=== PATIENT | male | born 1975 | race Caucasian/White ===

== ENCOUNTER → 2019-03-13 | Outpatient (CLI) | payer MEDICAID | END | disposition home or self-care (01) | LOC: PREOP 15:09 | PROVIDERS: ATTEND Orthopaedic Surgery Orthopaedic Surgery of the Spine | DX: Z01.818 Encounter for other preprocedural examination (principal) ==

== ENCOUNTER 2019-03-19 09:15 | Inpatient (IN) | payer MEDICAID ==
[~2019-03-19] VITALS: Ht 185 cm; Wt 102.1 kg
[2019-04-05] MEDS ORDERED: GABA-488 PO (10:14)
[2019-04-05] MEDS ORDERED: METO-333 PO (10:14)
[2019-04-16] MEDS ORDERED: LACTATED RINGERS 1,000 ML IV PRN (06:11)
[2019-04-16] MEDS ORDERED: ceFAZolin 2 GM IV Premixed 50 ML IV ONE (06:15)
[2019-04-16 06:25] VITALS: BP 153/92
[2019-04-16] MEDS ORDERED: GENTAMICIN 40 MG/ML 2 ML INJ SDV ONE (06:53)
[2019-04-16] MEDS ORDERED: SUCCINYLCHOLINE INJ 100 MG/5 ML SYR ONE (06:57)
[2019-04-16] MEDS ORDERED: LIDOCAINE PF 2% 5 ML (XYLOCAINE) VIAL ONE (06:57)
[2019-04-16] MEDS ORDERED: proPOfol 200 MG/20 ML (DIPRIVAN) VIAL IV ONE (06:57)
[2019-04-16] MEDS ORDERED: ONDANSETRON 4 MG/2 ML (SDV) Z0FRAN ONE (06:57)
[2019-04-16] MEDS ORDERED: ROCURONIUM 10 MG/ML 5 ML SYRINGE IV ONE (06:57)
[2019-04-16] MEDS ORDERED: MIDAZOLAM 2 MG/2 ML (VERSED) VIAL ONE (06:58)
[2019-04-16] MEDS ORDERED: DEXAMETHASONE 10 MG/ML (DECADRON) 1 ML VIAL ONE (06:58)
[2019-04-16] MEDS ORDERED: fentaNYL INJECTION 100 MCG/2 ML AMP ONE (06:58)
[2019-04-16] MEDS ORDERED: NS (IVPB) 0 ML ONE (06:59)
[2019-04-16] MEDS ORDERED: MULTIVIT W/MINERALS TAB (THERAGRAN M) PO SCH (07:00)
[2019-04-16] MEDS ORDERED: ONDANSETRON 4 MG (ZOFRAN) ORAL DISSOLVE TAB PO PRN (07:00)
[2019-04-16] MEDS ORDERED: morphine INJ 10 MG/ML 1ML (SYR OR VIAL) IVP PRN (07:00)
[2019-04-16] MEDS ORDERED: BISACODYL 5 MG (DULCOLAX) TABLET PO PRN (07:00)
[2019-04-16] MEDS ORDERED: VANCOMYCIN INJECTION 1,000 MG in NS (IVPB) 250 ML IV ONE (07:00)
[2019-04-16] MEDS ORDERED: HYDROcodone/APAP 5 MG/325 MG (LORTAB) TAB PO PRN (07:00)
[2019-04-16] MEDS ORDERED: PANTOPRAZOLE 40 MG (PROTONIX) TAB PO SCH (07:00)
[2019-04-16] MEDS ORDERED: ONDANSETRON 4 MG/2 ML (SDV) Z0FRAN IV PRN (07:00)
[2019-04-16] MEDS ORDERED: ACETAMINOPHEN 325 MG TABLET PO PRN (07:00)
[2019-04-16] MEDS ORDERED: MILK OF MAGNESIA 400 MG/5 ML 30 ML UDC PO PRN (07:00)
--- NOTE | 2019-04-16 07:15 | NUR ---
DR. FELIZ HERE. CANCELED SURGERY DUE TO NO INSTRUMENTATION. IV DC'D. BANDAID TO SITE. PATIENT GETTING DRESSED AND CALLING FOR RIDE.
--- NOTE | 2019-04-16 07:29 | Progress Note ---
Subjective Date Seen by a Provider: Apr 16, 2019 Time Seen by a Provider: 07:27 Subjective/Events-last exam Ready for surgery Objective Exam Vital Signs Date Time Temp Pulse Resp B/P (MAP) Pulse Ox O2 Delivery O2 Flow Rate FiO2 04/16/19 06:25 36.1 108 18 153/92 98 Room Air 04/16/19 06:25 98 Room Air Capillary Refill : Less Than 3 Seconds General Appearance: No Apparent Distress Assessment/Plan Assessment/Plan Assess & Plan/Chief Complaint Mr Le surgery is going to be cancelled this morning due to fact communication with office has been poor and office staff unaware he made his pre-op visit and was cancelled at the office and instrumentation companies unaware of case. He will need to be rescheduled. CHRISTIAN FELIZ MD Apr 16, 2019 07:29 POS
--- NOTE | 2019-04-16 08:30 | NUR ---
PATIENT AMBULATED OFF THE FLOOR TO GO TO THE [place], AWAITING A RIDE FROM HIS INSURANCE COMPANY.
[2019-04-16] MEDS ORDERED: VANCOMYCIN INJECTION 1,000 MG in NS (IVPB) 250 ML IV SCH (09:00)
[2019-04-16] MEDS ORDERED: POLYETHYLENE GLYCOL 17 GM (MIRALAX) PACK PO SCH (21:00)
--- OUTSIDE RECORDS SUMMARY | 2019-05-08 19:42 | XMS REPORT | Clinical Summary ---
Author Author Admin, QIE POS Organization [facility] SP Address Unknown SP Phone Unavailable SP Allergies, Adverse Reactions, Alerts Allergy Name Reaction Description Start Date Severity Status Pr ovider POS No Known Allergies Tika Grimes MA SP Conditions or Problems Problem Name Problem Code Onset Date Status Entry Date Provider Comment Standard POSDescription Annotate POS BMI 30-30.9 Refinement Kush Macias DO Body Mass Index 30.0- SP adult SP BMI 29-29.9 Active Kush Macias DO [place] dy Mass Index 30.0-30.9, SP SP Obesity Class I (BMI 30-34.9) Refinement Phuong Macias DO SP unspecified SP Overweight (BMI 25-29.9) Active Kush Macias DO Obesity, SP SP Cervical radiculopathy 723.4 Active Kush Macias DO SP neuritis or radiculitis NOS SP Cervical radiculopathy, right 723.4 Active 6 Kush Macias DO SP Brachial neuritis or radiculitis NOS SP Tobacco smoker 305.1 Active Kush Macias DO Tobacco use SP SP Elevated blood pressure without diagnosis of hypertension 796.2 SP Kush Macias DO Elevated blood p ressure reading without diagnosis SPof hypertension SP Cervical spine stenosis 723.0 Active Kush Ramon DO SP stenosis of cervical region SP Hypertension 401.9 Active Kush Macias DO Unspecified SP hypertension SP Medication List Medication Instructions Start Date Stop Date Generic Name NDC Status Provider POS Instruction METOPROLOL TARTRATE 25 MG ORAL TABLET 1/2 tablet by [facility] twice daily for POS and pulse METOPROLOL TARTRATE 29627214720 Active B edil Landaverde Gilberto DO SP Active SP GABAPENTIN 600 MG ORAL TABLET 1 p.o. 3 times daily for chron ic nerve pain SP GABAPENTIN 67398997734 Active Kush Macias DO Ac tive SP CYCLOBENZAPRINE HCL 10 MG ORAL TABLET 1 tablet by mouth q hs for pain and rest SP CYCLOBENZAPRINE HCL 28890566089 No Longer Active Kush Saima Dena e DO SP GABAPENTIN 300 MG ORAL CAPSULE 1 po TID for nerve pain GABAPENTIN SP Active Kush Macias DO Active SP CYCLOBENZAPRINE HCL 10 MG ORAL TABLET 1 tablet by mouth q hs for pain and rest SP CYCLOBENZAPRINE HCL 10 MG ORAL TABLET 601492 CYC LOBENZAPRINE HCL SP Vital Signs Date Name Value Unit Range Description POS blood pressure, diastolic, repeated by physician 83 BP farley SP blood pressure, diastolic 83 mm[Hg] BP farley SP blood pressure, systolic, repeated by physician 139 BP sys blood pressure, systolic 139 mm[Hg] BP sys SP height E&M 73 [in_us] Bdy height SP pulse rate E&M 97 /min Heart rate SP temperature E&M 98.2 [degF] Body temp erature SP weight E&M 224.31 [lb_av] Weight Measure d SP blood pressure, diastolic, repeated by physician 88 BP farley SP blood pressure, diastolic 88 mm[Hg] BP farley SP blood pressure, systolic, repeated by physician 135 BP sys SP blood pressure, systolic 135 mm[Hg] BP sys SP height E&M 73 [in_us] Bdy height SP pulse rate E&M 106 /min Heart rate SP temperature E&M 98.0 [degF] Body temp erature SP weight E&M 230.31 [lb_av] Weight Measure d SP Diagnostic Results Date Name Value Unit Range Description POS Office Visit: Establish Care - Chemistry SP HDL cholesterol, serum, target level 40 mg/dL SP cholesterol, target level 200 mg/dL SP triglyceride, target level 150 mg/dL SP Encounters Code Encounter Date Provider Facility POS CPT-72234 56880-Iqw Vst-Est Level IV 14:55:24 CDT Prem Landaverde [facility] CPT-63610 80526-Mzq Vst-New Level IV 13:58:49 CDT Prem Landaverde [facility] Procedures Code Procedure Name Date Entry Date Standard Desc ription POS CPT-40685 Smoking Cessation counseling 14:55:26 CDT 2
--- OUTSIDE RECORDS SUMMARY | 2019-05-08 19:42 | XMS REPORT | Clinical Summary ---
Author Author Admin, QIE POS Organization [facility] SP Address Unknown SP Phone Unavailable [...] 25 MG ORAL TABLET 1/2 tablet by [facility] twice daily for POS and pulse METOPROLOL TARTRATE 27149214786 Active B edil Landaverde Gilberto DO SP Active SP GABAPENTIN 600 MG ORAL TABLET 1 p.o. 3 times daily for chron ic nerve pain SP GABAPENTIN 34310581064 Active Kush Macias DO Ac tive SP CYCLOBENZAPRINE HCL 10 MG ORAL TABLET 1 tablet by mouth q hs for pain and rest SP CYCLOBENZAPRINE HCL 99227230079 No Longer Active Kush Saima Dena e DO SP GABAPENTIN 300 MG ORAL CAPSULE 1 po TID for nerve pain GABAPENTIN SP Active Kush Macias DO Active SP CYCLOBENZAPRINE HCL 10 MG ORAL TABLET 1 tablet by mouth q hs for pain and rest SP CYCLOBENZAPRINE HCL 10 MG ORAL TABLET 533832 CYC LOBENZAPRINE HCL SP Vital Signs Date [...] Encounters Code Encounter Date Provider Facility POS CPT-13408 66345-Bsl Vst-Est Level IV 14:55:24 CDT Prem Landaverde [facility] CPT-88890 73044-Rct Vst-New Level IV 13:58:49 CDT Prem Landaverde [facility] Procedures Code Procedure Name Date Entry Date Standard Desc ription POS CPT-57025 Smoking Cessation counseling 14:55:26 CDT 2
--- OUTSIDE RECORDS SUMMARY | 2019-05-08 19:42 | XMS REPORT | Clinical Summary ---
Author Author Admin, QIE POS Organization [facility] SP Address Unknown SP Phone Unavailable [...] 25 MG ORAL TABLET 1/2 tablet by [facility] twice daily for POS and pulse METOPROLOL TARTRATE 45004922149 Active B edil Landaverde Gilberto DO SP Active SP GABAPENTIN 600 MG ORAL TABLET 1 p.o. 3 times daily for chron ic nerve pain SP GABAPENTIN 00818441665 Active Kush Macias DO Ac tive SP CYCLOBENZAPRINE HCL 10 MG ORAL TABLET 1 tablet by mouth q hs for pain and rest SP CYCLOBENZAPRINE HCL 18889663740 No Longer Active Kush Saima Dena e DO SP GABAPENTIN 300 MG ORAL CAPSULE 1 po TID for nerve pain GABAPENTIN SP Active Kush Macias DO Active SP CYCLOBENZAPRINE HCL 10 MG ORAL TABLET 1 tablet by mouth q hs for pain and rest SP CYCLOBENZAPRINE HCL 10 MG ORAL TABLET 292205 CYC LOBENZAPRINE HCL SP Vital Signs Date [...] Encounters Code Encounter Date Provider Facility POS CPT-79566 07946-Eix Vst-Est Level IV 14:55:24 CDT Prem Landaverde [facility] CPT-06137 31897-Kvv Vst-New Level IV 13:58:49 CDT Prem Landaverde [facility] Procedures Code Procedure Name Date Entry Date Standard Desc ription POS CPT-96976 Smoking Cessation counseling 14:55:26 CDT 2
--- OUTSIDE RECORDS SUMMARY | 2019-05-08 19:42 | XMS REPORT | Clinical Summary ---
Author Author Admin, QIE POS Organization [facility] SP Address Unknown SP Phone Unavailable SP [...] 25 MG ORAL TABLET 1/2 tablet by [facility] twice daily for POS and pulse METOPROLOL TARTRATE 46711163727 Active B edil Landaverde Gilberto DO SP Active SP GABAPENTIN 600 MG ORAL TABLET 1 p.o. 3 times daily for chron ic nerve pain SP GABAPENTIN 49629870266 Active Kush Macias DO Ac tive SP CYCLOBENZAPRINE HCL 10 MG ORAL TABLET 1 tablet by mouth q hs for pain and rest SP CYCLOBENZAPRINE HCL 29429302401 No Longer Active Kush Saima Dena e DO SP GABAPENTIN 300 MG ORAL CAPSULE 1 po TID for nerve pain GABAPENTIN SP Active Kush Macias DO Active SP CYCLOBENZAPRINE HCL 10 MG ORAL TABLET 1 tablet by mouth q hs for pain and rest SP CYCLOBENZAPRINE HCL 10 MG ORAL TABLET 273345 CYC LOBENZAPRINE HCL SP Vital Signs Date [...] Encounters Code Encounter Date Provider Facility POS CPT-28780 29765-Sfq Vst-Est Level IV 14:55:24 CDT Prem Landaverde [facility] CPT-97462 53080-Kbi Vst-New Level IV 13:58:49 CDT Prem Landaverde [facility] Procedures Code Procedure Name Date Entry Date Standard Desc ription POS CPT-76086 Smoking Cessation counseling 14:55:26 CDT 2
--- OUTSIDE RECORDS SUMMARY | 2019-05-08 19:42 | XMS REPORT | Clinical Summary ---
Author Author Admin, QIE POS Organization [facility] SP Address Unknown SP Phone Unavailable SP [...] 25 MG ORAL TABLET 1/2 tablet by [facility] twice daily for POS and pulse METOPROLOL TARTRATE 96625062151 Active B edil Landaverde Gilberto DO SP Active SP GABAPENTIN 600 MG ORAL TABLET 1 p.o. 3 times daily for chron ic nerve pain SP GABAPENTIN 80858037474 Active Kush Macias DO Ac tive SP CYCLOBENZAPRINE HCL 10 MG ORAL TABLET 1 tablet by mouth q hs for pain and rest SP CYCLOBENZAPRINE HCL 65916189954 No Longer Active Kush Saima Dena e DO SP GABAPENTIN 300 MG ORAL CAPSULE 1 po TID for nerve pain GABAPENTIN SP Active Kush Macias DO Active SP CYCLOBENZAPRINE HCL 10 MG ORAL TABLET 1 tablet by mouth q hs for pain and rest SP CYCLOBENZAPRINE HCL 10 MG ORAL TABLET 392170 CYC LOBENZAPRINE HCL SP Vital Signs Date [...] Encounters Code Encounter Date Provider Facility POS CPT-69828 82347-Nnv Vst-Est Level IV 14:55:24 CDT Prem Landaverde [facility] CPT-36324 60209-Wbg Vst-New Level IV 13:58:49 CDT Prem Landaverde [facility] Procedures Code Procedure Name Date Entry Date Standard Desc ription POS CPT-46312 Smoking Cessation counseling 14:55:26 CDT 2
--- OUTSIDE RECORDS SUMMARY | 2019-05-08 19:42 | XMS REPORT | Clinical Summary ---
Author Author Admin, QIE POS Organization [facility] SP Address Unknown SP Phone Unavailable [...] 25 MG ORAL TABLET 1/2 tablet by [facility] twice daily for POS and pulse METOPROLOL TARTRATE 34003903308 Active B edil Landaverde Gilberto DO SP Active SP GABAPENTIN 600 MG ORAL TABLET 1 p.o. 3 times daily for chron ic nerve pain SP GABAPENTIN 27860375299 Active Kush Macias DO Ac tive SP CYCLOBENZAPRINE HCL 10 MG ORAL TABLET 1 tablet by mouth q hs for pain and rest SP CYCLOBENZAPRINE HCL 20455934915 No Longer Active Kush Saima Dena e DO SP GABAPENTIN 300 MG ORAL CAPSULE 1 po TID for nerve pain GABAPENTIN SP Active Kush Macias DO Active SP CYCLOBENZAPRINE HCL 10 MG ORAL TABLET 1 tablet by mouth q hs for pain and rest SP CYCLOBENZAPRINE HCL 10 MG ORAL TABLET 423102 CYC LOBENZAPRINE HCL SP Vital Signs Date [...] Encounters Code Encounter Date Provider Facility POS CPT-01324 88943-Puz Vst-Est Level IV 14:55:24 CDT Prem Landaverde [facility] CPT-52034 98670-Apa Vst-New Level IV 13:58:49 CDT Prem Landaverde [facility] Procedures Code Procedure Name Date Entry Date Standard Desc ription POS CPT-31371 Smoking Cessation counseling 14:55:26 CDT 2
--- OUTSIDE RECORDS SUMMARY | 2019-05-08 19:42 | XMS REPORT | Clinical Summary ---
Author Author Admin, QIE POS Organization [facility] SP Address Unknown SP Phone Unavailable [...] MG ORAL TABLET 1/2 tablet by [facility] twice daily for POS and pulse METOPROLOL TARTRATE 96815505035 Active B edil Landaverde Gilberto DO SP Active SP GABAPENTIN 600 MG ORAL TABLET 1 p.o. 3 times daily for chron ic nerve pain SP GABAPENTIN 19385847563 Active Kush Macias DO Ac tive SP CYCLOBENZAPRINE HCL 10 MG ORAL TABLET 1 tablet by mouth q hs for pain and rest SP CYCLOBENZAPRINE HCL 38015485162 No Longer Active Kush Saima Dena e DO SP GABAPENTIN 300 MG ORAL CAPSULE 1 po TID for nerve pain GABAPENTIN SP Active Kush Macias DO Active SP CYCLOBENZAPRINE HCL 10 MG ORAL TABLET 1 tablet by mouth q hs for pain and rest SP CYCLOBENZAPRINE HCL 10 MG ORAL TABLET 055386 CYC LOBENZAPRINE HCL SP Vital Signs Date [...] Encounters Code Encounter Date Provider Facility POS CPT-72803 80739-Kcs Vst-Est Level IV 14:55:24 CDT Prem Landaverde [facility] CPT-62628 56720-Crp Vst-New Level IV 13:58:49 CDT Prem Landaverde [facility] Procedures Code Procedure Name Date Entry Date Standard Desc ription POS CPT-88245 Smoking Cessation counseling 14:55:26 CDT 2
--- OUTSIDE RECORDS SUMMARY | 2019-05-08 19:43 | XMS REPORT | Clinical Summary ---
Author Author Admin, QIE POS Organization [facility] SP Address Unknown SP Phone Unavailable SP Allergies, Adverse Reactions, Alerts Allergy Name Reaction Description Start Date Severity Status Pr ovider POS Allergies Unknown SP Conditions or Problems Problem Name Problem Code Onset Date Status Entry Date Provider Comment Standard POSDescription Annotate POS BMI 30-30.9 Active Kush Macias DO [place] dy Mass Index 30.0-30.9, SP SP Obesity Class I (BMI 30-34.9) Active Kush Macias DO Obesity, SP SP [...] DO SP stenosis of cervical region SP Medication List Medication Instructions Start Date Stop Date Generic Name NDC Status Provider POS Instruction CYCLOBENZAPRINE HCL 10 MG ORAL TABLET 1 tablet by mouth q hs for pain and rest POS CYCLOBENZAPRINE HCL 27971090724 Active Kush Macias DO Active SP GABAPENTIN 300 MG ORAL CAPSULE 1 po TID for nerve pain GABAPENTIN SP Active Kush Macias DO Active SP Vital Signs Date Name Value Unit Range Description POS blood pressure, diastolic, repeated by physician 88 BP farley SP blood pressure, diastolic 88 mm[Hg] BP farley SP blood pressure, systolic, repeated by physician 135 BP sys blood pressure, systolic 135 mm[Hg] BP sys height E&M 73 [in_us] Bdy height pulse rate E&M 106 /min Heart rate temperature E&M 98.0 [degF] Body temp erature weight E&M 230.31 [lb_av] Weight Measure d SP Diagnostic Results Date Name Value Unit Range Description POS Office Visit: Establish Care - Chemistry HDL cholesterol, serum, target level 40 mg/dL cholesterol, target level 200 mg/dL triglyceride, target level 150 mg/dL SP Encounters Code Encounter Date Provider Facility POS CPT-96577 66116-Qze Vst-New Level IV 13:58:49 CDT Bru hugo W Gilberto VERNON [facility]
--- OUTSIDE RECORDS SUMMARY | 2019-05-08 19:43 | XMS REPORT | Clinical Summary ---
Author Author Admin, QIE POS Organization [facility] SP Address Unknown SP Phone Unavailable SP [...] for pain and rest POS CYCLOBENZAPRINE HCL 21274481440 Active Kush Macias DO Active SP GABAPENTIN [...] Encounters Code Encounter Date Provider Facility POS CPT-60051 51525-Qpv Vst-New Level IV 13:58:49 CDT Bru hugo W Gilberto VERNON [facility]
--- OUTSIDE RECORDS SUMMARY | 2019-05-08 19:43 | XMS REPORT | Continuity of Care Document ---
Author Organization Unknown POS Address Unknown SP Phone Unavailable SP Allergies Active Description Code Type Severity POS Reaction Onset Reported/Identified POS to Patient Clinical Status POS Yes No Known Medication Allergies Drug SP N/A N/A SP Yes No Allergy Information Available [id number] SP Allergy Unknown N/A 9 SP SP Yes No Known Drug Allergies [id number] Drug SP Unknown N/A 05/07/2019 SP SP Medications There is no data. Problems Date Dx Coded Attending Type Code POS Diagnosed By POS 10/16/2018 F17.200 To bacco smoker SP SP 10/16/2018 M48.02 Cer vical spine SP SP 10/16/2018 M54.12 Cer vical SP right SP 10/16/2018 R03.0 Elev ated blood SP without diagnosis of hypertension SP 10/16/2018 E66.9 Obes ity Class I SP 30-34.9) SP 10/16/2018 M54.12 Cer vical SP SP 10/16/2018 Z68.30 BMI 30-30.9 SP SP 11/17/2018 I10 Hypert ension SP SP 11/17/2018 E66.3 Over weight (BMI 25- SP SP 11/17/2018 Z68.29 BMI 29-29.9 SP SP 02/17/2019 FRAN RAMÍREZ Final M48.02 SP stenosis, cervical region SP 02/17/2019 FRAN RAMÍREZ Reason For Visit M54.2 SP Cervicalgia SP 02/17/2019 FRAN RAMÍREZ Final S16.1XXA SP of muscle, fascia and tendon at neck level, initial encounter SP 03/16/2019 Latesha Larsen Reason For Visi t SP Laceration without foreign body of right index finger without SP to nail, initial encounter SP 03/16/2019 Latesha Larsen Final S65.510A SP Laceration of blood vessel of right inde x finger, initial encounter SP SP 03/16/2019 Latesha Larsen Final W45.8XXA SP Other foreign body or object entering rough skin, initial encounter SP SP 03/19/2019 CHRISTIAN FELIZ MD Ot Z01.8 18 SP FOR OTHER PREPROCEDURAL EXAMIN SP 03/21/2019 KADE MCCLAIN Final L03.011 SP of right finger SP 03/21/2019 KADE MCCLAIN Reason For Visit T81.41XA SP Infection following a procedure, superfi cial incisional surgical SP initial encounter SP 04/05/2019 CHRISTIAN FELIZ MD Ot Z01.8 18 SP FOR OTHER PREPROCEDURAL EXAMIN SP 04/05/2019 CHRISTIAN FELIZ MD Ot Z01.8 18 SP FOR OTHER PREPROCEDURAL EXAMIN SP 04/05/2019 CHRISTIAN FELIZ MD Ot Z01.8 18 SP FOR OTHER PREPROCEDURAL EXAMIN SP 04/16/2019 CHRISTIAN FELIZ MD Ot M48.0 2 SP STENOSIS, CERVICAL REGION SP 04/16/2019 CHRISTIAN FELIZ MD Ot Z53.8 SP AND TREATMENT NOT CARRIED OUT SP 05/07/2019 CHRISTIAN FELIZ MD Ot Z01.8 18 SP FOR OTHER PREPROCEDURAL EXAMIN SP Procedures There is no data. Results Test Result Range POS Methicillin resistant Staphylococcus aur eus (MRSA) screening culture - 04/05/19 POS MRSA SCREEN RESULT MRSA ISOLATED NRG POS Encounters ACCT No. Visit Date/Time Discharge Status POS Pt. Type Provider Facility Loc./Un it POS Complaint POS [id number] 02/20/2019 15:34:00 ACT Unknown SP SP [id number] 03/21/2019 15:17:57 9 15:35:00 SP DIS Emergency KADE MCCLAIN [facility] JESSICA ED er visit SP [id number] 03/16/2019 02:37:10 9 03:40:00 SP DIS Emergency Latesha Larsen [facility] JESSICA ED ER visit SP [id number] 02/17/2019 10:13:12 9 11:12:00 SP DIS Emergency FRAN RAMÍREZ [facility] JESSICA ED er visit SP [id number] 11/09/2018 07:16:41 9 23:59:59 SP DIS Outpatient FERNANDO, RADHA [facility] JESSICA RAD cspine stenosis SP [id number] 10/05/2018 18:27:00 9 19:07:00 SP DIS Emergency KADE MCCLAIN [facility] JESSICA ED ed visit SP [id number] 08/07/2018 13:58:00 9 14:45:00 SP DIS Emergency KADE MCCLAIN [facility] ED ed visit SP [id number] 05/07/2019 05:42:00 09:27:00 SP DIS Outpatient CHRISTIAN FELIZ MD [facility] PREOP STENOSIS SP [id number] 04/16/2019 06:05:00 10:00:00 SP DIS Inpatient CHRISTIAN FELIZ MD [facility] SURG STENOSIS SP [id number] 04/05/2019 09:59:00 12:33:00 SP DIS Outpatient CHRISTIAN FELIZ MD [facility] PREOP STENOSIS SP [id number] 03/13/2019 15:09:00 23:59:59 SP CLS Outpatient CHRISTIAN FELIZ MD [facility] PREOP STENOSIS SP [id number] 05/14/2019 07:30:00 P EN CHRISTIAN GILES MD [facility] SDC STENOSIS SP
--- OUTSIDE RECORDS SUMMARY | 2019-05-08 19:43 | XMS REPORT | Clinical Summary ---
[...] for pain and rest POS CYCLOBENZAPRINE HCL 63207402794 Active Kush Macias DO Active SP GABAPENTIN [...] Encounters Code Encounter Date Provider Facility POS CPT-83709 38920-Pvn Vst-New Level IV 13:58:49 CDT Bru hugo W Gilberto VERNON [facility]
--- OUTSIDE RECORDS SUMMARY | 2019-05-08 19:43 | XMS REPORT | Clinical Summary ---
Author Author Admin, QIE POS Organization [facility] SP Address Unknown SP Phone Unavailable [...] for pain and rest POS CYCLOBENZAPRINE HCL 48657273772 Active Kush Macias DO Active SP GABAPENTIN [...] Encounters Code Encounter Date Provider Facility POS CPT-29772 13540-Ist Vst-New Level IV 13:58:49 CDT Bru hugo W Gilberto VERNON [facility]
--- OUTSIDE RECORDS SUMMARY | 2019-05-08 19:43 | XMS REPORT | Clinical Summary ---
Author Author Admin, QIE POS Organization [facility] SP Address Unknown SP Phone [...] for pain and rest POS CYCLOBENZAPRINE HCL 06927511863 Active Kush Macias DO Active SP GABAPENTIN [...] Encounters Code Encounter Date Provider Facility POS CPT-01882 26227-Tnm Vst-New Level IV 13:58:49 CDT Bru hugo W Gilberto VERNON [facility]
--- OUTSIDE RECORDS SUMMARY | 2019-05-08 19:43 | XMS REPORT | Clinical Summary ---
Author Author Admin, QIE POS Organization [facility] SP Address Unknown SP Phone Unavailable [...] for pain and rest POS CYCLOBENZAPRINE HCL 46017732833 Active Kush Macias DO Active SP GABAPENTIN [...] Encounters Code Encounter Date Provider Facility POS CPT-53194 93835-Wcr Vst-New Level IV 13:58:49 CDT Bru hugo W Gilberto VERNON [facility]
--- OUTSIDE RECORDS SUMMARY | 2019-05-08 19:43 | XMS REPORT | Clinical Summary ---
Author Author Admin, QIE POS Organization [facility] SP Address Unknown SP Phone Unavailable SP [...] for pain and rest POS CYCLOBENZAPRINE HCL 07442375053 Active Kush Macias DO Active SP GABAPENTIN [...] Encounters Code Encounter Date Provider Facility POS CPT-72736 91084-Nko Vst-New Level IV 13:58:49 CDT Bru hugo W Gilberto VERNON [facility]
--- OUTSIDE RECORDS SUMMARY | 2019-05-08 19:43 | XMS REPORT | Clinical Summary ---
Author Author Admin, QIE POS Organization [facility] SP Address Unknown SP Phone Unavailable [...] for pain and rest POS CYCLOBENZAPRINE HCL 97443137544 Active Kush Macias DO Active SP GABAPENTIN [...] Encounters Code Encounter Date Provider Facility POS CPT-14427 11465-Avj Vst-New Level IV 13:58:49 CDT Bru hugo W Gilberto VERNON [facility]
--- OUTSIDE RECORDS SUMMARY | 2019-05-08 19:43 | XMS REPORT | Clinical Summary ---
Author Author Admin, QIE POS Organization [facility] SP Address Unknown SP Phone Unavailable [...] for pain and rest POS CYCLOBENZAPRINE HCL 73938055388 Active Kush Macias DO Active SP GABAPENTIN [...] Encounters Code Encounter Date Provider Facility POS CPT-34078 62299-Hbh Vst-New Level IV 13:58:49 CDT Bru hugo W Gilberto VERNON [facility]
[2019-05-15] MEDS ORDERED: ACHD5005 PO (06:57)
== END 2019-04-16 10:00 | disposition home or self-care (01) | DRG 552 ==
LOC: EDSTATUS 09:15 → 4TH 04-16 06:05 → SURG 04-16 06:06 → EDSTATUS 04-16 07:30
PROVIDERS: ADMIT Orthopaedic Surgery Orthopaedic Surgery of the Spine; ATTEND Orthopaedic Surgery Orthopaedic Surgery of the Spine
DX: M48.02 Spinal stenosis, cervical region (principal); Z53.8 Procedure and treatment not carried out for other reasons
CPT/HCPCS: 94664

== ENCOUNTER 2019-04-05 09:59 | Outpatient (CLI) | payer MEDICAID ==
[~2019-04-05] VITALS: Ht 185 cm; Wt 102.1 kg
[2019-04-05] MEDS ORDERED: METO-333 PO (10:14)
[2019-04-05] MEDS ORDERED: GABA-488 PO (10:14)
[2019-04-05 10:17] VITALS: BP 131/88
== END 2019-04-05 12:33 | disposition home or self-care (01) ==
LOC: PREOP 09:59
PROVIDERS: ATTEND Orthopaedic Surgery Orthopaedic Surgery of the Spine
DX: Z01.818 Encounter for other preprocedural examination (principal)
CPT/HCPCS: 87081

== ENCOUNTER 2019-05-07 05:42 | Outpatient (CLI) | payer MEDICAID ==
[~2019-05-07] VITALS: Ht 185 cm; Wt 102.1 kg
[~2019-05-07 05:42] MED LIST: GABA-488 PO; METO-333 PO
== END 2019-05-07 09:27 | disposition home or self-care (01) ==
LOC: PREOP 05:42
PROVIDERS: ATTEND Orthopaedic Surgery Orthopaedic Surgery of the Spine
DX: Z01.818 Encounter for other preprocedural examination (principal)